=== PATIENT | female | born 1975 | race Caucasian/White ===

== ENCOUNTER → 2016-10-10 | Outpatient (CLI) | payer OTHER ==
[2016-10-10 10:18] LABS: ANION GAP 13 MEQ/L (8-16); BLOOD UREA NITROGEN 9 MG/DL (7-18); CALCIUM LEVEL 8.4 MG/DL (8.5-10.1); CARBON DIOXIDE LEVEL 21 MEQ/L (21-32); CHLORIDE LEVEL 108 MEQ/L (98-107); CREATININE FOR GFR 0.96 MG/DL (0.55-1.02); GLOMERULAR FILTRATION RATE > 60.0 (>58); GLUCOSE, FASTING 174 MG/DL (70-105); POTASSIUM SERUM 4.1 MEQ/L (3.5-5.1); SODIUM LEVEL 142 MEQ/L (136-145)
--- NOTE | 2016-10-11 09:12 | ECGEPIP ---
Stationary ECG Study [facility] Test Date: 2016-10-10 Pat Name: TIMI SWEENEY Department: Room: - Gender: F Grill Associate: SUSHIL : 1975 Requested By: Edwin Menendez @ [facility] Order Number: [id number] Reading MD: Khoa De Anda Measurements Intervals [place] Rate: 102 P: 64 NC: 147 QRS: 57 QRSD: 84 T: 44 QT: 359 QTc: 469 Interpretive Statements SINUS TACHYCARDIA Comparison tracing not on file Electronically Signed On 10-11-2016 9:12:18 EST by Khoa De Anda
== END ==
LOC: M LAB 08:58
PROVIDERS: ATTEND Orthopaedic Surgery
DX: Z01.818 Encounter for other preprocedural examination (principal); R00.0 Tachycardia, unspecified; I10 Essential (primary) hypertension; E11.9 Type 2 diabetes mellitus without complications

== ENCOUNTER → 2016-11-02 | Outpatient (REF) | payer OTHER ==
[2016-11-02 11:46] LABS: ANION GAP 9 MEQ/L (8-16); BLOOD UREA NITROGEN 12 MG/DL (7-18); CALCIUM LEVEL 8.9 MG/DL (8.5-10.1); CARBON DIOXIDE LEVEL 21 MEQ/L (21-32); CHLORIDE LEVEL 112 MEQ/L (98-107); CREATININE FOR GFR 1.03 MG/DL (0.55-1.02); GLOMERULAR FILTRATION RATE > 60.0 (>58); GLUCOSE, FASTING 158 MG/DL (70-105); POTASSIUM SERUM 4.5 MEQ/L (3.5-5.1); SODIUM LEVEL 142 MEQ/L (136-145)
== END ==
LOC: M LABDRAW1 11:18
PROVIDERS: ATTEND Orthopaedic Surgery
DX: Z01.812 Encounter for preprocedural laboratory examination (principal); E11.9 Type 2 diabetes mellitus without complications

== ENCOUNTER 2016-11-16 12:46 | Emergency (ER) | payer OTHER ==
[2016-11-16] MEDS ORDERED: KETOROLAC 30 MG/ML VIAL (J1885) As Ordered ONE (14:13)
--- NOTE | 2016-11-16 15:23 | EDDOCDS ---
Physician Documentation [facility] Name: Timi Keen Age: 41 yrs Sex: Female : 1975 Arrival Date: 11/16/2016 Time: 12:46 Bed PD Private MD: DILLON VILLARREAL Disposition: 11/16/16 15:11 Discharged to Home/Self Care. Impression: Slipping, tripping and stumbling without falling due to stepping from one level to another, Other sprain of right shoulder joint, Low back pain. - Condition is Stable. - Discharge Instructions: Back Pain, Adult, Shoulder Pain. - Prescriptions for Percocet 5- 325 mg Oral Tablet - take 1 tablet by ORAL route every 6 hours As needed MDD: 4 tabs; 12 tablet. - Medication Reconciliation, Local Pharmacy Hours form. - Follow up: DILLON VILLARREAL; When: Call to arrange an appointment; Reason: Wound/Symptom Recheck, Recheck today's complaints, Continuance of care. - Problem is an ongoing problem. - Symptoms have improved. Historical: - Allergies: Aspirin (Hives); Codeine Sulfate (Hives); Flagyl (Hives); Keflex (Hives); PENICILLINS (Hives); Positive latex allergy (Rash); Vicodin (Hives); Zofran (Hives); Tape; - Home Meds: 1. Effexor XR 300 mg Oral once daily 2. Flexeril 10 mg Oral tab 3 times per day 3. levothyroxine 75 mcg Oral tab 1 tab once daily 4. lisinopril 10 mg Oral tab 1.5 tab once daily 5. metformin 1,000 mg Oral tr24 1 tab once daily 6. metoprolol succinate oral 10 mg twice a day 7. Neurontin 800 mg oral tab 1 tab daily 8. hydroxyzine HCl 50 mg Oral tab 1 tab nightly 9. Topamax 200 mg Oral tab 1 tab 2 times per day - PMHx: "psychogenic" seizures; Anxiety; Carpal Tunnel Syndrome; Depression; Diabetes - NIDDM: controlled; Fibromyalgia; Hypertension; Hypothyroidism; Migraine Headaches; neuropathy; Seizure Disorder; - PSHx: R wrist and R elbow surgery; ; Knee surgery- Left; Appendectomy; Colonoscopy; Tonsillectomy; - Social history: Smoking status: Patient states was never smoker of tobacco. No barriers to communication noted, The patient speaks fluent Bengali. - Family history: No immediate family members are acutely ill. - : The pt / caregiver states he / she is not on anticoagulants. Home medication list is obtained from the patient. - Exposure Risk Screening:: None identified. COOK 3 PASTRY: 11/16 12:55 LMP 11/03/2016 ms18 Vital Signs: 12:47 BP 97 / 53; Pulse 83; Resp 18 S; Temp 98.4(O); Pulse Ox 98% on R/A; Weight 77.11 kg / gr2 170 lbs (R); Height 5 ft. 2 in. (157.48 cm) (R); Pain 8/10; 15:21 BP 112 / 64; Pulse 68; Resp 17; Temp 97.1; Pulse Ox 96% ; mb9 12:47 Body Mass Index 31.09 (77.11 kg, 157.48 cm) gr2 MDM: 13:55 ketorolac 60 mg IM once ordered. cc10 13:55 Shoulder, Complete Ordered. EDMS 13:57 Spine. Lumbosacral, Complete Ordered. EDMS 14:11 Financial registration complete. lg Administered Medications: 14:18 Drug: ketorolac 60 mg [ketorolac 30 mg/mL (1 mL) injection solution (2 mL)] Route: IM; ms18 Site: right gluteus; Signatures: Dispatcher [employer] EDMS Dwayne Green, Reg Reg lg Alan Taylor, ANNETTA LITTLEJOHN cc10 Jessi Rondon RN RN ms18 Viral John RN RN mb9 MTDD
--- NOTE | 2016-11-16 15:23 | EDDOCDS ---
Nurse's Notes [facility] Name: Timi Keen Age: 41 yrs Sex: Female : 1975 Arrival Date: 11/16/2016 Time: 12:46 Bed PD Private MD: DILLON VILLARREAL Diagnosis: Slipping, tripping and stumbling without falling due to stepping from one level to another;Other sprain of right shoulder joint;Low back pain Presentation: 11/16 12:51 Presenting complaint: Patient states: that she fell in the shower a week ago and now ms18 her R shoulder, R side of her neck, and lower back are hurting. Adult Sepsis Screening: The patient does not have new or worsening altered mentation. Patient's respiratory rate is less than 22. Systolic blood pressure is greater than 100. Patient has a qSOFA score of 0- Negative Sepsis Screen. Suicide/Homicide risk assessment- the patient denies having any suicidal and/or homicidal ideations and does not present with any other emotional, behavioral or mental health complaints. 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 Transition of care: patient was not received from another setting of care. 12:51 Acuity: RAFAT Level 4 ms18 12:51 Method Of Arrival: Walkin/Carried/Asstd ms18 Triage Assessment: 12:55 General: Appears in no apparent distress, obese, uncomfortable, Behavior is appropriate ms18 for age, cooperative. Pain: Location: low back area, anterior aspect of right shoulder and posterior aspect of right shoulder Pain currently is 10 out of 10 on a pain scale. HIV screening NA for this visit Offered previously. Neurological: Level of Consciousness is awake, alert, obeys commands, Oriented to person, place, time, Moves all extremities. Gait is steady, Speech is normal, Facial symmetry appears normal. Respiratory: No deficits noted. Derm: Skin is pink, warm & dry. normal. Musculoskeletal: Reports pain in low back area, anterior aspect of right shoulder, posterior aspect of right shoulder and right sternocleidomastoid. 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 Effexor XR 300 mg Oral once daily 2. Flexeril 10 mg Oral tab 3 times per day 3. levothyroxine 75 mcg Oral tab 1 tab once daily 4. lisinopril 10 mg Oral tab 1.5 tab once daily 5. metformin 1,000 mg Oral tr24 1 tab once daily 6. metoprolol succinate oral 10 mg twice a day 7. Neurontin 800 mg oral tab 1 tab daily 8. hydroxyzine HCl 50 mg Oral tab 1 tab nightly 9. Topamax 200 mg Oral tab 1 tab 2 times per day - PMHx: "psychogenic" seizures; Anxiety; Carpal Tunnel Syndrome; Depression; Diabetes - NIDDM: controlled; Fibromyalgia; Hypertension; Hypothyroidism; Migraine Headaches; neuropathy; Seizure Disorder; - PSHx: R wrist and R elbow surgery; ; Knee surgery- Left; Appendectomy; Colonoscopy; Tonsillectomy; - Social history: Smoking status: Patient states was never smoker of tobacco. No barriers to communication noted, The patient speaks fluent Latvian. - Family history: No immediate family members are acutely ill. - : The pt / caregiver states he / she is not on anticoagulants. Home medication list is obtained from the patient. - Exposure Risk Screening:: None identified. Screenin:21 Screening information is obtained from the patient. Fall risk: No risks identified. mb9 Assistance ADL's: requires no assistance with activities of daily living. Abuse/DV Screen: The patient / caregiver reports he/she is: not in a situation that causes fear, pain or injury. Nutritional screening: No deficits noted. Advance Directives: There is no active DNR order. home support is adequate. Assessment: 15:21 General: Appears in no apparent distress, Behavior is appropriate for age, cooperative. mb9 Pain: Location: anterior aspect of right shoulder Pain currently is 5 out of 10 on a pain scale. Respiratory: Airway is patent Respiratory effort is even, unlabored. Musculoskeletal: Range of motion limited in right shoulder. Vital Signs: 12:47 BP 97 / 53; Pulse 83; Resp 18 S; Temp 98.4(O); Pulse Ox 98% on R/A; Weight 77.11 kg gr2 (R); Height 5 ft. 2 in. (157.48 cm) (R); Pain 8/10; 15:21 BP 112 / 64; Pulse 68; Resp 17; Temp 97.1; Pulse Ox 96% ; mb9 12:47 Body Mass Index 31.09 (77.11 kg, 157.48 cm) gr2 Vitals: 12:47 Log In Time: November 16, 2016 at 12:47. gr2 ED Course: 12:47 Patient visited by Pete Erickson. gr2 12:47 DILLON VILLARREAL is Private Physician. gr2 12:47 Patient moved to Waiting gr2 12:49 Patient visited by Pete Erickson. gr2 12:49 Patient moved to Pre RCE gr2 12:52 Triage Initiated ms18 13:41 Patient moved to Triage 3 mb9 13:48 Alan Taylor PA-C is PHCP. cc10 13:48 Avelino Goodman MD is Attending Physician. cc10 13:48 Patient visited by Alan Taylor PA-C. cc10 13:48 Patient visited by Alan Taylor PA-C. cc10 14:16 Patient visited by Jessi Rondon RN. ms18 14:18 Patient moved to TR2 ms18 15:07 Patient moved to PD2 / 27 mlb1 15:11 DILLON VILLARREAL is Referral Physician. cc10 15:21 The patient / caregiver is instructed regarding the plan of care and ED course. mb9 15:21 No IV's were initiated during this patient's visit. No procedures done that require mb9 assistance. Administered Medications: 14:18 Drug: ketorolac 60 mg [ketorolac 30 mg/mL (1 mL) injection solution (2 mL)] Route: IM; ms18 Site: right gluteus; Order Results: There are currently no results for this order. Outcome: 15:11 Discharge ordered by Provider. cc10 15:21 Discharge Assessment: Patient awake, alert and oriented x 3. No cognitive and/or mb9 functional deficits noted. Patient verbalized understanding of disposition instructions. patient administered narcotics - no. The following High Risk Discharge criteria are identified: None. Discharged to home ambulatory. Condition: good Condition: stable Condition: improved. Discharge instructions given to patient, Instructed on discharge instructions, follow up and referral plans. medication usage, no driving heavy equipment, Demonstrated understanding of instructions, medications, Pt was receptive of discharge instructions/ teaching. Prescriptions given X 1. No special radiology studies were completed. Property :Personal belongings accompany Pt. 15:23 Patient left the ED. mb9 Signatures: Viral Miller RN RN mlb1 Pete Erickson gr2 Alan Taylor PA-C PA-C cc10 Jessi Rondon RN RN ms18 Viral John RN RN mb9 MTDD
--- NOTE | 2016-11-16 15:41 | REP ---
LUMBAR SPINE, FIVE VIEWS: HISTORY: Trauma. There is no acute fracture or subluxation. The L3-4 and L4-5 intervertebral discs are decreased in height consistent with disc degeneration. Osteophytes are present on L1 through L4. The facet joints are normal in appearance. Calcifications are present overlying the left kidney. This likely represents nephrocalcinosis. There is minimal scoliosis convex to the left. IMPRESSION: 1. Degenerative change as described above. 2. Left nephrocalcinosis. Signed by Carlos Hicks MD 11/16/2016 03:48 P
--- NOTE | 2016-11-16 15:42 | REP ---
RIGHT SHOULDER, THREE VIEWS: HISTORY: Trauma. There is no acute fracture or dislocation. The joint spaces are normal in appearance. IMPRESSION: There is no acute fracture or dislocation. Signed by Carlos Hicks MD 11/16/2016 03:48 P
--- NOTE | 2016-11-18 16:24 | EDDOCDS ---
Physician Documentation [facility] Name: Timi Keen Age: 41 yrs Sex: Female : 1975 Arrival Date: 11/16/2016 Time: 12:46 Bed PD Private MD: DILLON VILLARREAL Disposition: 11/16/16 15:11 Discharged to Home/Self Care. Impression: Slipping, tripping and stumbling without falling due to stepping from one level to another, Other sprain of right shoulder joint, Low back pain. - Condition is Stable. - Discharge Instructions: Back Pain, Adult, Shoulder Pain. - Prescriptions for Percocet 5- 325 mg Oral Tablet - take 1 tablet by ORAL route every 6 hours As needed MDD: 4 tabs; 12 tablet. - Medication Reconciliation, Local Pharmacy Hours form. - Follow up: DILLON VILLARREAL; When: Call to arrange an appointment; Reason: Wound/Symptom Recheck, Recheck today's complaints, Continuance of care. - Problem is an ongoing problem. - Symptoms have improved. Historical: - Allergies: Aspirin (Hives); Codeine Sulfate (Hives); Flagyl (Hives); Keflex (Hives); PENICILLINS (Hives); Positive latex allergy (Rash); Vicodin (Hives); Zofran (Hives); Tape; - Home Meds: 1. Effexor XR 300 mg Oral once daily 2. Flexeril 10 mg Oral tab 3 times per day 3. levothyroxine 75 mcg Oral tab 1 tab once daily 4. lisinopril 10 mg Oral tab 1.5 tab once daily 5. metformin 1,000 mg Oral tr24 1 tab once daily 6. metoprolol succinate oral 10 mg twice a day 7. Neurontin 800 mg oral tab 1 tab daily 8. hydroxyzine HCl 50 mg Oral tab 1 tab nightly 9. Topamax 200 mg Oral tab 1 tab 2 times per day - PMHx: "psychogenic" seizures; Anxiety; Carpal Tunnel Syndrome; Depression; Diabetes - NIDDM: controlled; Fibromyalgia; Hypertension; Hypothyroidism; Migraine Headaches; neuropathy; Seizure Disorder; - PSHx: R wrist and R elbow surgery; ; Knee surgery- Left; Appendectomy; Colonoscopy; Tonsillectomy; - Social history: Smoking status: Patient states was never smoker of tobacco. No barriers to communication noted, The patient speaks fluent Azeri. - Family history: No immediate family members are acutely ill. - : The pt / caregiver states he / she is not on anticoagulants. Home medication list is obtained from the patient. - Exposure Risk Screening:: None identified. 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 2 in. (157.48 cm) (R); Pain 8/10; 15:21 BP 112 / 64; Pulse 68; Resp 17; Temp 97.1; Pulse Ox 96% ; mb9 12:47 Body Mass Index 31.09 (77.11 kg, 157.48 cm) gr2 MDM: 13:55 ketorolac 60 mg IM once ordered. cc10 13:55 Shoulder, Complete Ordered. EDMS 13:57 Spine. Lumbosacral, Complete Ordered. EDMS 14:11 Financial registration complete. lg 15:48 [facility] Payment Agreement was scanned into [employer] and attached to record. lg 11/17 13:43 T-Sheet-- Draft Copy was scanned into [employer] and attached to record. gb Administered Medications: 11/16 14:18 Drug: ketorolac 60 mg [ketorolac 30 mg/mL (1 mL) injection solution (2 mL)] Route: IM; ms18 Site: right gluteus; Signatures: Dispatcher [employer] EDMS Neda Rondon, Reg Reg gb Dwayne Green, Reg Reg lg Alan Taylor PA-C PA-C cc10 Jessi Rondon RN RN ms18 Viral John RN RN mb9 The chart was reviewed and I authenticate all verbal orders and agree with the evaluation and treatment provided.Attachments: 15:48 [facility] Payment Agreement 11/17 13:43 T-Sheet-- Draft Copy gb Chart Complete MTDD
--- NOTE | 2016-11-18 16:24 | EDDOCDS ---
Nurse's Notes [facility] Name: Timi Keen Age: 41 yrs Sex: Female : 1975 Arrival Date: 11/16/2016 Time: 12:46 Bed PD Private MD: DILLON VILLARREAL Diagnosis: Slipping, tripping and stumbling without falling due to stepping from one level to another;Other sprain of right shoulder joint;Low back pain Presentation: 11/16 12:51 Presenting complaint: Patient states: that she fell in the shower a week ago and now ms18 her R shoulder, R side of her neck, and lower back are hurting. Adult Sepsis Screening: The patient does not have new or worsening altered mentation. Patient's respiratory rate is less than 22. Systolic blood pressure is greater than 100. Patient has a qSOFA score of 0- Negative Sepsis Screen. Suicide/Homicide risk assessment- the patient denies having any suicidal and/or homicidal ideations and does not present with any other emotional, behavioral or mental health complaints. Status: Patient is not a ancillary services manager or dependent. Transition of care: patient was not received from another setting of care. 12:51 Acuity: RAFAT Level 4 ms18 12:51 Method Of Arrival: Walkin/Carried/Asstd ms18 Triage Assessment: 12:55 General: Appears in no apparent distress, obese, uncomfortable, Behavior is appropriate ms18 for age, cooperative. Pain: Location: low back area, anterior aspect of right shoulder and posterior aspect of right shoulder Pain currently is 10 out of 10 on a pain scale. HIV screening NA for this visit Offered previously. Neurological: Level of Consciousness is awake, alert, obeys commands, Oriented to person, place, time, Moves all extremities. Gait is steady, Speech is normal, Facial symmetry appears normal. Respiratory: No deficits noted. Derm: Skin is pink, warm & dry. normal. Musculoskeletal: Reports pain in low back area, anterior aspect of right shoulder, posterior aspect of right shoulder and right sternocleidomastoid. 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 Effexor XR 300 mg Oral once daily 2. Flexeril 10 mg Oral tab 3 times per day 3. levothyroxine 75 mcg Oral tab 1 tab once daily 4. lisinopril 10 mg Oral tab 1.5 tab once daily 5. metformin 1,000 mg Oral tr24 1 tab once daily 6. metoprolol succinate oral 10 mg twice a day 7. Neurontin 800 mg oral tab 1 tab daily 8. hydroxyzine HCl 50 mg Oral tab 1 tab nightly 9. Topamax 200 mg Oral tab 1 tab 2 times per day - PMHx: "psychogenic" seizures; Anxiety; Carpal Tunnel Syndrome; Depression; Diabetes - NIDDM: controlled; Fibromyalgia; Hypertension; Hypothyroidism; Migraine Headaches; neuropathy; Seizure Disorder; - PSHx: R wrist and R elbow surgery; ; Knee surgery- Left; Appendectomy; Colonoscopy; Tonsillectomy; - Social history: Smoking status: Patient states was never smoker of tobacco. No barriers to communication noted, The patient speaks fluent Syriac. - Family history: No immediate family members are acutely ill. - : The pt / caregiver states he / she is not on anticoagulants. Home medication list is obtained from the patient. - Exposure Risk Screening:: None identified. Screenin:21 Screening information is obtained from the patient. Fall risk: No risks identified. mb9 Assistance ADL's: requires no assistance with activities of daily living. Abuse/DV Screen: The patient / caregiver reports he/she is: not in a situation that causes fear, pain or injury. Nutritional screening: No deficits noted. Advance Directives: There is no active DNR order. home support is adequate. Assessment: 15:21 General: Appears in no apparent distress, Behavior is appropriate for age, cooperative. mb9 Pain: Location: anterior aspect of right shoulder Pain currently is 5 out of 10 on a pain scale. Respiratory: Airway is patent Respiratory effort is even, unlabored. Musculoskeletal: Range of motion limited in right shoulder. Vital Signs: 12:47 BP 97 / 53; Pulse 83; Resp 18 S; Temp 98.4(O); Pulse Ox 98% on R/A; Weight 77.11 kg gr2 (R); Height 5 ft. 2 in. (157.48 cm) (R); Pain 8/10; 15:21 BP 112 / 64; Pulse 68; Resp 17; Temp 97.1; Pulse Ox 96% ; mb9 12:47 Body Mass Index 31.09 (77.11 kg, 157.48 cm) gr2 Vitals: 12:47 Log In Time: November 16, 2016 at 12:47. gr2 ED Course: 12:47 Patient visited by Pete Erickson. gr2 12:47 DILLON VILLARREAL is Private Physician. gr2 12:47 Patient moved to Waiting gr2 12:49 Patient visited by Pete Erickson. gr2 12:49 Patient moved to Pre RCE gr2 12:52 Triage Initiated ms18 13:41 Patient moved to Triage 3 mb9 13:48 Alan Taylor PA-C is PHCP. cc10 13:48 Avelino Goodman MD is Attending Physician. cc10 13:48 Patient visited by Alan Taylor PA-C. cc10 13:48 Patient visited by Alan Taylor PA-C. cc10 14:16 Patient visited by Jessi Rondon RN. ms18 14:18 Patient moved to TR2 ms18 15:07 Patient moved to PD2 / 27 mlb1 15:11 DILLON VILLARREAL is Referral Physician. cc10 15:21 The patient / caregiver is instructed regarding the plan of care and ED course. mb9 15:21 No IV's were initiated during this patient's visit. No procedures done that require mb9 assistance. 15:48 [facility] Payment Agreement was scanned into [employer] and attached to record. lg 15:49 Spine. Lumbosacral, Complete Returned. EDMS 15:49 Shoulder, Complete Returned. EDMS 11/17 13:43 T-Sheet-- Draft Copy was scanned into [employer] and attached to record. gb Administered Medications: 11/16 14:18 Drug: ketorolac 60 mg [ketorolac 30 mg/mL (1 mL) injection solution (2 mL)] Route: IM; ms18 Site: right gluteus; Order Results: Radiology Order: Shoulder, Complete Test: Shoulder, Complete REASON FOR EXAMINATION: Trauma; RIGHT SHOULDER, THREE VIEWS:; ; HISTORY: Trauma.; ; There is no acute fracture or dislocation. The joint spaces are normal in; appearance.; ; IMPRESSION:; ; There is no acute fracture or dislocation.; ; ; Signed by; Carlos Hicks MD 11/16/2016 03:48 P; Radiology Order: Spine. Lumbosacral, Complete Test: Spine. Lumbosacral, Complete REASON FOR EXAMINATION: Trauma; LUMBAR SPINE, FIVE VIEWS:; ; HISTORY: Trauma.; ; There is no acute fracture or subluxation. The L3-4 and L4-5 intervertebral discs; are decreased in height consistent with disc degeneration. Osteophytes are; present on L1 through L4. The facet joints are normal in appearance.; Calcifications are present overlying the left kidney. This likely represents; nephrocalcinosis. There is minimal scoliosis convex to the left.; ; IMPRESSION:; ; 1. Degenerative change as described above.; ; 2. Left nephrocalcinosis.; ; ; Signed by; Carlos Hicks MD 11/16/2016 03:48 P; Outcome: 15:11 Discharge ordered by Provider. cc10 15:21 Discharge Assessment: Patient awake, alert and oriented x 3. No cognitive and/or mb9 functional deficits noted. Patient verbalized understanding of disposition instructions. patient administered narcotics - no. The following High Risk Discharge criteria are identified: None. Discharged to home ambulatory. Condition: good Condition: stable Condition: improved. Discharge instructions given to patient, Instructed on discharge instructions, follow up and referral plans. medication usage, no driving heavy equipment, Demonstrated understanding of instructions, medications, Pt was receptive of discharge instructions/ teaching. Prescriptions given X 1. No special radiology studies were completed. Property :Personal belongings accompany Pt. 15:23 Patient left the ED. mb9 Signatures: Dispatcher [employer] EDMS Neda Rondon, Reg Reg gb Dwayne Green, Reg Reg lg Viral Miller RN RN mlb1 Pete Erickson gr2 Alan Taylor PADilciaC PADilciaC cc10 Jessi Rondon RN RN ms18 Viral John,RN RN mb9 Chart Complete MTDD
--- NOTE | 2016-11-18 16:24 | EDDOCDS ---
Physician Documentation [facility] Name: Timi Keen Age: 41 yrs Sex: Female : 1975 Arrival Date: 11/16/2016 Time: 12:46 Bed PD Private MD: DILLON VILLARREAL Disposition: 11/16/16 15:11 Discharged to Home/Self Care. Impression: Slipping, tripping and stumbling without falling due to stepping from one level to another, Other sprain of right shoulder joint, Low back pain. - Condition is Stable. - Discharge Instructions: Back Pain, Adult, Shoulder Pain. - Prescriptions for Percocet 5- 325 mg Oral Tablet - take 1 tablet by ORAL route every 6 hours As needed MDD: 4 tabs; 12 tablet. - Medication Reconciliation, Local Pharmacy Hours form. - Follow up: DILLON VILLARREAL; When: Call to arrange an appointment; Reason: Wound/Symptom Recheck, Recheck today's complaints, Continuance of care. - Problem is an ongoing problem. - Symptoms have improved. Historical: - Allergies: Aspirin (Hives); Codeine Sulfate (Hives); Flagyl (Hives); Keflex (Hives); PENICILLINS (Hives); Positive latex allergy (Rash); Vicodin (Hives); Zofran (Hives); Tape; - Home Meds: 1. Effexor XR 300 mg Oral once daily 2. Flexeril 10 mg Oral tab 3 times per day 3. levothyroxine 75 mcg Oral tab 1 tab once daily 4. lisinopril 10 mg Oral tab 1.5 tab once daily 5. metformin 1,000 mg Oral tr24 1 tab once daily 6. metoprolol succinate oral 10 mg twice a day 7. Neurontin 800 mg oral tab 1 tab daily 8. hydroxyzine HCl 50 mg Oral tab 1 tab nightly 9. Topamax 200 mg Oral tab 1 tab 2 times per day - PMHx: "psychogenic" seizures; Anxiety; Carpal Tunnel Syndrome; Depression; Diabetes - NIDDM: controlled; Fibromyalgia; Hypertension; Hypothyroidism; Migraine Headaches; neuropathy; Seizure Disorder; - PSHx: R wrist and R elbow surgery; ; Knee surgery- Left; Appendectomy; Colonoscopy; Tonsillectomy; - Social history: Smoking status: Patient states was never smoker of tobacco. No barriers to communication noted, The patient speaks fluent Azeri. - Family history: No immediate family members are acutely ill. - : The pt / caregiver states he / she is not on anticoagulants. Home medication list is obtained from the patient. - Exposure Risk Screening:: None identified. 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 2 in. (157.48 cm) (R); Pain 8/10; 15:21 BP 112 / 64; Pulse 68; Resp 17; Temp 97.1; Pulse Ox 96% ; mb9 12:47 Body Mass Index 31.09 (77.11 kg, 157.48 cm) gr2 MDM: 13:55 ketorolac 60 mg IM once ordered. cc10 13:55 Shoulder, Complete Ordered. EDMS 13:57 Spine. Lumbosacral, Complete Ordered. EDMS 14:11 Financial registration complete. lg 15:48 [facility] Payment Agreement was scanned into Bottle and attached to record. lg 11/17 13:43 T-Sheet-- Draft Copy was scanned into Bottle and attached to record. gb Administered Medications: 11/16 14:18 Drug: ketorolac 60 mg [ketorolac 30 mg/mL (1 mL) injection solution (2 mL)] Route: IM; ms18 Site: right gluteus; Signatures: Dispatcher [employer] EDMS Neda Rondon, Reg Reg gb Dwayne Green, Reg Reg lg Alan Taylor PA-C PA-C cc10 Jessi Rondon RN RN ms18 Viral John RN RN mb9 The chart was reviewed and I authenticate all verbal orders and agree with the evaluation and treatment provided.Attachments: 15:48 [facility] Payment Agreement 11/17 13:43 T-Sheet-- Draft Copy gb Chart Complete MTDD
== END 2016-11-16 15:23 | disposition home or self-care (01) ==
LOC: M ED 12:46
DX: S40.011A Contusion of right shoulder, initial encounter (principal); M54.5 Low back pain; W18.2XXA Fall in (into) shower or empty bathtub, initial encounter; Y92.019 Unspecified place in single-family (private) house as the place of occurrence of the external cause; Y93.E1 Activity, personal bathing and showering; Y99.9 Unspecified external cause status; E11.9 Type 2 diabetes mellitus without complications; F41.9 Anxiety disorder, unspecified; F32.9 Major depressive disorder, single episode, unspecified; F44.5 Conversion disorder with seizures or convulsions; M79.7 Fibromyalgia; I10 Essential (primary) hypertension; E03.9 Hypothyroidism, unspecified; G43.909 Migraine, unspecified, not intractable, without status migrainosus; G62.9 Polyneuropathy, unspecified; Z79.84 Long term (current) use of oral hypoglycemic drugs; Z79.899 Other long term (current) drug therapy; Z88.6 Allergy status to analgesic agent; Z88.5 Allergy status to narcotic agent; Z88.0 Allergy status to penicillin; Z91.040 Latex allergy status; Z88.8 Allergy status to other drugs, medicaments and biological substances
CPT/HCPCS: 72110; 73030; 96372; 99283; J1885

== ENCOUNTER → 2017-01-26 | Outpatient (CLI) | payer OTHER ==
[~2017-01-26] MED LIST: CONRAY-43 43% 50ML VIAL (Q9960) As Ordered ONE; EFFE75CA75 PO; GABA800T PO; HYDR-4274 PO; LEVO75TA4 PO; LISI10TA4 PO; METF500T PO; METO25TA74 PO; PHEN-239 PO; TIZA4CAP3 PO; TOPA200T6 PO
--- NOTE | 2017-01-26 10:04 | REP ---
MR ARTHROGRAM RIGHT SHOULDER: TECHNIQUE: Axial T2 fat sat, coronal oblique T1, T2 fat sat, post arthrogram axial T1 fat sat, proton density, coronal oblique T1 fat sat, T2 sat, sagittal oblique T2 fat sat, ABER T1 fat sat. Supraspinatus tendon demonstrates focal increased signal on T2-weighted images in the undersurface of the distal anterior insertion site consistent with a partial undersurface tear. Another partial undersurface tear is seen approximately 1.5 cm medially to the distal end of the tendon. Other rotator cuff tendons appear intact. There are mild hypertrophic degenerative changes of the acromioclavicular joint with subchondral marrow edema on both sides of the joint. Acromion is curved in shape. Biceps tendon is within the bicipital groove without significant tenosynovitis. There is no Hill-Sach's deformity. Deltoid muscle demonstrates no abnormal signal. Biceps labral complex is intact. There is a small Bankart lesion at the anterior inferior labrum and glenoid. A small piece of bone about 4 mm in diameter is from the adjacent bony glenoid along with the inferior labrum, at the anterior inferior aspect of the glenoid. There is also a tear of the posterior aspect of the inferior labrum. No other abnormal marrow signal is seen. There is no joint effusion or paralabral cyst. IMPRESSION: Two focal partial thickness undersurface tears distal supraspinatus tendon. Mild hypertrophic degenerative changes acromioclavicular joint with subchondral marrow edema. Bankart lesion anterior inferior glenoid and labrum. There is also a tear of the posterior aspect of the inferior labrum. Signed by Abhishek Wilhelm MD 01/26/2017 04:49 P
--- NOTE | 2017-01-27 06:12 | REP ---
RIGHT SHOULDER ARTHROGRAM: The procedure was performed under the direct supervision of Dr. Wilhelm. The benefits and risks including but not limited to pain, infection, bleeding and anaphylaxis were explained to the patient and informed consent was obtained. The right glenohumeral joint space was localized using fluoroscopic guidance. The skin was prepped and draped in a sterile fashion. 1% lidocaine was used as a local anesthetic. Using fluoroscopic guidance, a 22-gauge spinal needle was inserted and advanced into the joint. 0.5 mL of Conray 43 was injected to verify placement. 11 mL of a solution containing 20 mL of sterile saline and 0.15 mL of ProHance was injected. The needle was removed and the patient was taken to MRI for postprocedural imaging. The patient tolerated the procedure well and there were no immediate complications. 1 second of fluoroscopy time was utilized for this procedure. Reviewed by GUANAKITO Cancino 01/27/2017 05:34 PEdited and Signed by Abhishek Wilhelm MD 01/30/2017 05:34 P
== END ==
LOC: M RADPRO 06:57
PROVIDERS: ATTEND Family Medicine
DX: M75.41 Impingement syndrome of right shoulder (principal); M24.811 Other specific joint derangements of right shoulder, not elsewhere classified; M24.111 Other articular cartilage disorders, right shoulder; M19.011 Primary osteoarthritis, right shoulder; M25.411 Effusion, right shoulder; Z88.8 Allergy status to other drugs, medicaments and biological substances; Z88.0 Allergy status to penicillin; Z79.899 Other long term (current) drug therapy
CPT/HCPCS: 23350; 73223; 77002; A9576; Q9960

== ENCOUNTER 2017-02-23 14:00 | Outpatient (RCR) | payer MEDICAID ==
[~2017-02-23 14:00] MED LIST changes: -CONRAY-43 43% 50ML VIAL (Q9960) As Ordered ONE
== END 2017-03-01 ==
LOC: M OUTALCOH 14:00
PROVIDERS: ATTEND Psychiatry & Neurology Psychiatry
DX: F10.20 Alcohol dependence, uncomplicated (principal)

== ENCOUNTER → 2017-03-02 | Outpatient (REF) | payer OTHER ==
[2017-03-02 13:30] LABS: ANION GAP 9 MEQ/L (8-16); BLOOD UREA NITROGEN 12 MG/DL (7-18); CALCIUM LEVEL 9.1 MG/DL (8.5-10.1); CARBON DIOXIDE LEVEL 25 MEQ/L (21-32); CHLORIDE LEVEL 110 MEQ/L (98-107); CREATININE FOR GFR 0.95 MG/DL (0.55-1.02); FREE T4 0.63 NG/DL (0.76-1.46); GLOMERULAR FILTRATION RATE > 60.0 (>58); GLUCOSE, FASTING 123 MG/DL (70-105); POTASSIUM SERUM 3.8 MEQ/L (3.5-5.1); SODIUM LEVEL 144 MEQ/L (136-145)
== END ==
LOC: M SFHCLERA 09:29
PROVIDERS: ATTEND Family Medicine
DX: E03.9 Hypothyroidism, unspecified (principal); E11.9 Type 2 diabetes mellitus without complications; I10 Essential (primary) hypertension

== ENCOUNTER 2017-03-15 03:03 | Emergency (ER) | payer OTHER ==
[~2017-03-15] VITALS: Ht 157.5 cm; Wt 73.0 kg
[2017-03-15] MEDS ORDERED: LYRI75CA PO (03:13)
[2017-03-15] MEDS ORDERED: CLIN1CAP5 PO (03:42)
[2017-03-15] MEDS ORDERED: CLINDAMYCIN 150 MG CAP PO ONE (03:45)
[2017-03-15] MEDS ORDERED: OXYCODONE/APAP 5MG/325MG(BULK FOR ED) 1 TABLET PO ONE (03:45)
[2017-03-15 03:51] VITALS: BP 138/82
[2017-03-28] MEDS ORDERED: METF500T PO (17:03)
[2017-03-28] MEDS ORDERED: BENA25TA9 PO ×2 (18:33→18:34)
== END 2017-03-15 03:52 | disposition home or self-care (01) ==
LOC: M ED 03:33
DX: S02.5XXA Fracture of tooth (traumatic), initial encounter for closed fracture (principal); X58.XXXA Exposure to other specified factors, initial encounter; Y92.9 Unspecified place or not applicable; Y93.9 Activity, unspecified; Y99.9 Unspecified external cause status; E11.9 Type 2 diabetes mellitus without complications; M79.7 Fibromyalgia; Z79.84 Long term (current) use of oral hypoglycemic drugs; Z79.899 Other long term (current) drug therapy; Z88.6 Allergy status to analgesic agent; Z88.0 Allergy status to penicillin; Z88.1 Allergy status to other antibiotic agents; Z88.8 Allergy status to other drugs, medicaments and biological substances

== ENCOUNTER → 2017-03-16 | Outpatient (CLI) | payer OTHER ==
[~2017-03-16] MED LIST changes: +CLIN1CAP5 PO; +LYRI75CA PO
--- NOTE | 2017-03-17 06:53 | REP ---
Clinical: Hypothyroidism. Technique: Real time andrade scale and color evaluation using linear high frequency transducer. Findings: The thyroid gland is mildly heterogeneous but normal in size and contour. Right lobe measures 3.5 x 1.1 x 1.0 cm with small cysts measuring up to 5 mm maximal diameter as well as two mid pole solid nodules measuring 4 x 3 x 4 mm, and 5 x 3 x 4 mm. Left lobe measures 3.9 x 1.2 x 0.9 cm and includes 5 mm cyst and 3 x 2 x 2 mm mid pole solid nodule. Isthmus measures 2.2 mm in width with a right hypoechoic solid nodule measuring 7 x 7 x 4 mm. Impression: Scattered nonspecific small cysts and few solid nodules as described above. Signed by Karel Anne MD 03/17/2017 06:44 A
== END ==
LOC: M RAD 11:13
PROVIDERS: ATTEND Family Medicine
DX: E04.1 Nontoxic single thyroid nodule (principal)

== ENCOUNTER 2017-03-28 16:49 | Emergency (ER) | payer MEDICAID, OTHER ==
[~2017-03-28 16:49] MED LIST changes: +CLIN150C14 PO; -CLIN1CAP5 PO; -HYDR-4274 PO; +HYDR50TA70 PO; -METF500T PO; +METF500T13 PO; +METO1TAB32 PO; -METO25TA74 PO; -TOPA200T6 PO; +TOPA200T7 PO
[2017-03-28] MEDS ORDERED: diphenhydrAMINE INJ 50MG/ML VIAL (J1200) IV STA (16:58)
[2017-03-28] MEDS ORDERED: dexameTHASONE 20 MG/5 ML VIAL (J1100) IV ONE (17:00)
[2017-03-28] MEDS ORDERED: FAMOTIDINE INJ 20MG/2ML VIAL (S0028) IVP ONE (17:00)
[2017-03-28] MEDS ORDERED: METF500T13 PO (17:03)
[2017-03-28] MEDS ORDERED: LEVO88TA3 PO (17:03)
[2017-03-28] MEDS ORDERED: BENA25TA10 PO ×2 (18:33→18:34)
[2017-03-28] MEDS ORDERED: NORCO, ANEXSIA 5/325MG TABLET (HYDROcodone/ACETAMINOPHEN) PO ONE (18:45)
[2017-03-28 19:03] VITALS: BP 169/103
== END 2017-03-28 19:23 | disposition home or self-care (01) ==
LOC: M ED 16:49
DX: R21 Rash and other nonspecific skin eruption (principal); R06.02 Shortness of breath; E11.9 Type 2 diabetes mellitus without complications; R56.9 Unspecified convulsions; M79.7 Fibromyalgia; Z79.84 Long term (current) use of oral hypoglycemic drugs; Z79.899 Other long term (current) drug therapy; Z88.4 Allergy status to anesthetic agent; Z88.1 Allergy status to other antibiotic agents; Z88.5 Allergy status to narcotic agent; Z88.0 Allergy status to penicillin

== ENCOUNTER → 2017-03-31 | Outpatient (RCR) | payer MEDICAID ==
[~2017-03-31] MED LIST changes: +ACET1TAB17 PO; +ATIV1TAB10; +BENA25TA10 PO; +EFFE150C PO; +EFFE37.527 PO; +LAMI1TAB7; +LEVO88TA3 PO; +PERC5TAB12 PO; +PRAZ1CAP; +REGL10TA6 PO; +WELLTAB38
== END ==
LOC: M OUTALCOH 03-02 15:08
PROVIDERS: ATTEND Psychiatry & Neurology Psychiatry
DX: F10.20 Alcohol dependence, uncomplicated (principal)

== ENCOUNTER → 2017-04-11 | Outpatient (REF) | payer OTHER ==
[2017-04-11 15:31] LABS: FREE T4 0.95 NG/DL (0.76-1.46)
== END ==
LOC: M SFHCLERA 12:21
PROVIDERS: ATTEND Family Medicine
DX: E03.9 Hypothyroidism, unspecified (principal)

== ENCOUNTER 2017-04-12 13:20 | Emergency (ER) | payer OTHER ==
[~2017-04-12] VITALS: Ht 157.5 cm; Wt 80.5 kg
[2017-04-12 13:20] VITALS: BP 141/82
[~2017-04-12 13:20] MED LIST changes: -ACET1TAB17 PO; -ATIV1TAB10; -EFFE150C PO; -EFFE37.527 PO; -LAMI1TAB7; -PERC5TAB12 PO; -PRAZ1CAP; -REGL10TA6 PO; -WELLTAB38
== END 2017-04-12 14:25 | disposition left against medical advice (07) ==
LOC: M ED 13:20
DX: S49.91XA Unspecified injury of right shoulder and upper arm, initial encounter (principal); X58.XXXA Exposure to other specified factors, initial encounter; Y92.89 Other specified places as the place of occurrence of the external cause; Y93.89 Activity, other specified; Y99.8 Other external cause status; Z53.29 Procedure and treatment not carried out because of patient's decision for other reasons

== ENCOUNTER 2017-04-13 14:00 | Outpatient (RCR) | payer MEDICAID ==
[2017-04-23] MEDS ORDERED: EFFE37.527 PO (00:31)
[2017-04-23] MEDS ORDERED: EFFE150C PO (00:31)
[2017-04-23] MEDS ORDERED: PERC5TAB12 PO (01:03)
[2017-04-23] MEDS ORDERED: ACET1TAB17 PO (22:31)
[2017-04-25] MEDS ORDERED: EFFE150C PO (15:17)
[2017-04-25] MEDS ORDERED: REGL10TA6 PO (17:45)
== END 2017-05-01 ==
LOC: M OUTALCOH 14:00
PROVIDERS: ATTEND Psychiatry & Neurology Psychiatry
DX: F10.20 Alcohol dependence, uncomplicated (principal)

== ENCOUNTER 2017-04-23 00:11 | Emergency (ER) | payer MEDICAID, OTHER ==
[~2017-04-23] VITALS: Ht 157.5 cm; Wt 76.4 kg
[2017-04-23 00:14] VITALS: BP 140/79
[2017-04-23] MEDS ORDERED: EFFE150C PO (00:31)
[2017-04-23] MEDS ORDERED: EFFE37.527 PO (00:31)
[2017-04-23] MEDS ORDERED: OXYCODONE/APAP 5MG/325MG(BULK FOR ED) 1 TABLET PO ONE (01:00)
[2017-04-23] MEDS ORDERED: PERC5TAB12 PO (01:03)
[2017-04-23] MEDS ORDERED: ACET1TAB17 PO (22:31)
== END 2017-04-23 01:50 | disposition home or self-care (01) ==
LOC: M ED 00:11
DX: K08.539 Fractured dental restorative material, unspecified (principal); Z79.84 Long term (current) use of oral hypoglycemic drugs; Z79.899 Other long term (current) drug therapy; Z88.6 Allergy status to analgesic agent; Z88.1 Allergy status to other antibiotic agents; Z88.5 Allergy status to narcotic agent; Z88.0 Allergy status to penicillin

== ENCOUNTER 2017-04-23 22:15 | Emergency (ER) | payer OTHER ==
[~2017-04-23] VITALS: Ht 157.5 cm; Wt 79.5 kg
[~2017-04-23 22:15] MED LIST changes: +EFFE150C PO; +EFFE37.527 PO; +PERC5TAB12 PO
[2017-04-23 22:21] VITALS: BP 144/94
[2017-04-23] MEDS ORDERED: ACET1TAB17 PO (22:31)
[2017-04-25] MEDS ORDERED: EFFE150C PO (15:17)
[2017-04-25] MEDS ORDERED: REGL10TA6 PO (17:45)
== END 2017-04-24 01:45 | disposition left against medical advice (07) ==
LOC: M ED 22:15
DX: R22.0 Localized swelling, mass and lump, head (principal); Z53.21 Procedure and treatment not carried out due to patient leaving prior to being seen by health care provider

== ENCOUNTER 2017-04-24 04:36 | Emergency (ER) | payer OTHER ==
[~2017-04-24 04:36] MED LIST changes: +ACET1TAB17 PO
[2017-04-25] MEDS ORDERED: EFFE150C PO (15:17)
[2017-04-25] MEDS ORDERED: REGL10TA6 PO (17:45)
== END 2017-04-24 05:00 | disposition left against medical advice (07) ==
LOC: M ED 04:36
DX: R22.0 Localized swelling, mass and lump, head (principal); Z53.21 Procedure and treatment not carried out due to patient leaving prior to being seen by health care provider

== ENCOUNTER 2017-04-25 14:58 | Emergency (ER) | payer OTHER, MEDICAID ==
[~2017-04-25] VITALS: Ht 160 cm; Wt 77.3 kg
[2017-04-25] MEDS ORDERED: EFFE150C PO (15:17)
[2017-04-25] MEDS ORDERED: METOCLOPRAMIDE INJ 10MG/2ML VIAL (J2765) IV ONE (16:00)
[2017-04-25] MEDS ORDERED: NS 1,000 ML IV ONE (16:00)
[2017-04-25] MEDS ORDERED: CLINDAMYCIN 900 MG in APPROPRIATE DILUENT 1 EA IV ONE (16:00)
[2017-04-25] MEDS ORDERED: MORPHINE 4 MG/ML 1ML SYRINGE IV ONE (16:00)
[2017-04-25 16:41] LABS: BASO % 0.4 % (0.0-1.0); EOS # 0.1 K/mm3 (0.0-0.50); EOS % 1.3 % (0.0-3.0); LARGE UNSTAINED CELL # 0.1 K/mm3 (0.0-0.4); LARGE UNSTAINED CELL % 1.2 % (0.0-4.0); LYMPH # 1.5 K/mm3 (1.5-4.5); LYMPH % 20.3 % (24.0-44.0); MEAN CORPUSCULAR HEMOGLOBIN 29.4 pg (27.0-33.0); MEAN CORPUSCULAR HGB CONC 33.7 g/dl (32.0-36.5); MEAN CORPUSCULAR VOLUME 87.3 fl (80.0-96.0); MONO # 0.4 K/mm3 (0.0-0.8); MONO % 5.4 % (0.0-5.0); NEUTROPHILS % 71.4 % (36.0-66.0); PLATELET COUNT, AUTOMATED 333 k/mm3 (150-450); RED CELL DISTRIBUTION WIDTH 13.7 % (11.5-14.5)
[2017-04-25 16:42] LABS: CONTROL LINE HCG INT CTR LINE PRESENT
[2017-04-25 16:46] LABS: ANION GAP 8 MEQ/L (8-16); BLOOD UREA NITROGEN 12 MG/DL (7-18); CALCIUM LEVEL 8.9 MG/DL (8.5-10.1); CARBON DIOXIDE LEVEL 26 MEQ/L (21-32); CHLORIDE LEVEL 107 MEQ/L (98-107); CREATININE FOR GFR 0.72 MG/DL (0.55-1.02); GLOMERULAR FILTRATION RATE > 60.0 (>58); GLUCOSE, FASTING 116 MG/DL (70-105); POTASSIUM SERUM 3.9 MEQ/L (3.5-5.1); SODIUM LEVEL 141 MEQ/L (136-145)
[2017-04-25] MEDS ORDERED: ISOVUE-370 76% 100ML VIAL (Q9967) As Ordered ONE (16:53)
--- NOTE | 2017-04-25 17:39 | REP ---
Maxillofacial CT with IV contrast: The submandibular, submental and parotid salivary glands are unremarkable. The tonsillar tissues and tongue base are unremarkable. The epiglottis is unremarkable. The prevertebral soft tissues are unremarkable. No inflammatory changes or adenopathy is identified. The paranasal sinuses are unremarkable. The ocular globes and lenses are unremarkable. The orbital fat planes are unremarkable. Impression: Essentially negative maxillofacial CT. There is no evidence of inflammation, adenopathy or mass. Sign taking Signed by Abhishek Gutierrez MD 04/25/2017 05:31 P
[2017-04-25] MEDS ORDERED: REGL10TA6 PO (17:45)
[2017-04-25 18:11] VITALS: BP 132/78
== END 2017-04-25 18:14 | disposition home or self-care (01) ==
LOC: M ED 14:58
DX: K02.9 Dental caries, unspecified (principal); R68.84 Jaw pain; K13.79 Other lesions of oral mucosa; G50.1 Atypical facial pain; K58.9 Irritable bowel syndrome, unspecified; E11.9 Type 2 diabetes mellitus without complications; M79.7 Fibromyalgia; F32.9 Major depressive disorder, single episode, unspecified; F44.5 Conversion disorder with seizures or convulsions; Z79.84 Long term (current) use of oral hypoglycemic drugs; Z79.899 Other long term (current) drug therapy; Z88.6 Allergy status to analgesic agent; Z88.5 Allergy status to narcotic agent; Z88.0 Allergy status to penicillin; Z88.8 Allergy status to other drugs, medicaments and biological substances; Z88.1 Allergy status to other antibiotic agents
CPT/HCPCS: 70487; 80048; 84703; 85025; 86140; 96361; 96365; 96375; 99284; J2765; Q9967

== ENCOUNTER 2017-05-28 22:53 | Emergency (ER) | payer MEDICAID, OTHER ==
[~2017-05-28] VITALS: Ht 160 cm; Wt 83.9 kg
[~2017-05-28 22:53] MED LIST changes: +REGL10TA6 PO
[2017-05-28 22:57] VITALS: BP 141/79
[2017-05-28] MEDS ORDERED: LAMI1TAB7 (23:02)
[2017-05-28] MEDS ORDERED: ATIV1TAB10 (23:02)
[2017-05-28] MEDS ORDERED: PRAZ1CAP (23:02)
[2017-05-28] MEDS ORDERED: WELLTAB38 (23:02)
[2017-05-28] MEDS ORDERED: PERC5TAB12 PO (23:22)
[2017-05-28] MEDS ORDERED: OXYCODONE/APAP 5MG/325MG(BULK FOR ED) 1 TABLET PO ONE (23:30)
== END 2017-05-29 00:02 | disposition home or self-care (01) ==
LOC: M ED 22:53
DX: G89.29 Other chronic pain (principal); M25.511 Pain in right shoulder; E11.9 Type 2 diabetes mellitus without complications; K58.9 Irritable bowel syndrome, unspecified; F41.9 Anxiety disorder, unspecified; F32.9 Major depressive disorder, single episode, unspecified; Z79.899 Other long term (current) drug therapy; Z88.6 Allergy status to analgesic agent; Z88.5 Allergy status to narcotic agent; Z88.0 Allergy status to penicillin; Z88.8 Allergy status to other drugs, medicaments and biological substances

== ENCOUNTER 2017-07-05 11:54 | Emergency (ER) | payer MEDICAID, OTHER ==
[~2017-07-05] VITALS: Ht 157.5 cm; Wt 83.6 kg
[~2017-07-05 11:54] MED LIST changes: +ATIV1TAB10; +LAMI1TAB7; +PRAZ1CAP; +WELLTAB38
[2017-07-05] MEDS ORDERED: METOCLOPRAMIDE INJ 10MG/2ML VIAL (J2765) IV ONE (13:00)
[2017-07-05 13:11] LABS: ANION GAP 7 MEQ/L (8-16); BLOOD UREA NITROGEN 14 MG/DL (7-18); CALCIUM LEVEL 8.9 MG/DL (8.5-10.1); CARBON DIOXIDE LEVEL 25 MEQ/L (21-32); CHLORIDE LEVEL 106 MEQ/L (98-107); CREATININE FOR GFR 0.75 MG/DL (0.55-1.02); GLOMERULAR FILTRATION RATE > 60.0 (>58); GLUCOSE, FASTING 112 MG/DL (70-105); POTASSIUM SERUM 4.1 MEQ/L (3.5-5.1); SODIUM LEVEL 138 MEQ/L (136-145)
[2017-07-05 13:14] LABS: BASO % 0.6 % (0.0-1.0); EOS # 0.2 10^3/uL (0.0-0.50); EOS % 3.4 % (0.0-3.0); LYMPH # 1.5 10^3/uL (1.5-4.5); LYMPH % 22.7 % (24.0-44.0); MEAN CORPUSCULAR HEMOGLOBIN 28.2 pg (27.0-33.0); MEAN CORPUSCULAR HGB CONC 32.9 g/dl (32.0-36.5); MEAN CORPUSCULAR VOLUME 85.9 fl (80.0-96.0); MONO # 0.7 10^3/uL (0.0-0.8); NEUTROPHILS # 4.2 10^3/uL (1.8-7.7); NEUTROPHILS % 62.3 % (36.0-66.0); PLATELET COUNT, AUTOMATED 282 10^3/uL (150-450); RED CELL DISTRIBUTION WIDTH 13.1 % (11.5-14.5); WHITE BLOOD COUNT 6.8 10^3/uL (4.0-10.0)
[2017-07-05 13:20] LABS: ADD MANUAL DIFFER NO; DIFF SLIDE NUMBER 239
--- NOTE | 2017-07-05 13:22 | REP ---
CT Head without contrast HISTORY: Headache COMPARISON: 02/14/2016 There is no intraparenchymal hemorrhage, acute infarct, mass or midline shift. The ventricular system is normal in appearance. There is no extra cerebral collection. There is no fracture. The visualized sinuses are clear. IMPRESSION: There is no intracranial lesion. Signed by Carlos Hicks MD 07/05/2017 01:13 P
[2017-07-05 13:24] LABS: INR 0.92
--- NOTE | 2017-07-05 13:30 | REP ---
Chest x-ray: Two views. History: Chest pain. Findings: EKG monitoring electrodes overlie the chest. There is a granulomatous calcification projecting at the left upper lung zone peripherally. Lung del castillo are otherwise clear. Pleural angles are sharp. Heart size is normal. No significant bony abnormality is seen. Impression: No active disease. Signed by Bryce Monroy MD 07/05/2017 03:54 P
[2017-07-05] MEDS: NITROGLYCERIN 0.4 MG SUBL TABLET SL PRN ×3 (13:35→13:53)
[2017-07-05 13:53] VITALS: BP 115/69
[2017-07-05] MEDS ORDERED: MORPHINE 4 MG/ML 1ML SYRINGE IV ONE (14:15)
[2017-07-05] MEDS ORDERED: ISOVUE-370 76% 100ML VIAL (Q9967) As Ordered ONE (15:05)
--- NOTE | 2017-07-05 15:38 | REP ---
CT of the chest with IV contrast, CT pulmonary angiography: There are no emboli in the pulmonary trunk or central pulmonary arteries. There are no emboli in the lobe or segment branches. The thoracic aorta is unremarkable. There is no mediastinal or hilar adenopathy. There is minor discoid atelectasis in the right middle lobe and in the lingula. Lung del castillo otherwise clear. Cardiac size is normal. There is no pericardial effusion. The visualized upper abdominal contents are unremarkable. Impression: There are no pulmonary emboli. There are no infiltrates, effusions, masses or adenopathy. A calcified granuloma is incidentally identified in the left upper lobe. Negative CT study of the chest. Signed by Abhishek Gutierrez MD 07/05/2017 03:29 P
[2017-07-05 17:01] VITALS: BP 137/86
--- NOTE | 2017-07-06 07:51 | ECGEPIP ---
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
== END 2017-07-05 17:02 | disposition home or self-care (01) ==
LOC: M ED 11:54
DX: R51 Headache (principal); I10 Essential (primary) hypertension; E11.9 Type 2 diabetes mellitus without complications; E07.9 Disorder of thyroid, unspecified; M79.7 Fibromyalgia; R56.9 Unspecified convulsions; F41.9 Anxiety disorder, unspecified; F33.9 Major depressive disorder, recurrent, unspecified; Z79.84 Long term (current) use of oral hypoglycemic drugs; Z79.899 Other long term (current) drug therapy; Z88.8 Allergy status to other drugs, medicaments and biological substances; Z88.1 Allergy status to other antibiotic agents; Z88.5 Allergy status to narcotic agent; Z88.0 Allergy status to penicillin
CPT/HCPCS: 36415; 70450; 71020; 71275; 80048; 82550; 82553; 85025; 85610; 85730; 93000; 93041; 94760; 96374; 96375; 99285; J2765; Q9967

== ENCOUNTER 2017-07-08 22:48 | Emergency (ER) | payer OTHER ==
[~2017-07-08] VITALS: Ht 157.5 cm; Wt 77.3 kg
[2017-07-08] MEDS ORDERED: FAMOTIDINE IV BAG 20 MG in APPROPRIATE DILUENT 1 EA IV ONE (23:30)
[2017-07-08] MEDS ORDERED: methylPREDNISolone INJ 125 MG/2 ML VIAL (J2930) IV ONE (23:30)
[2017-07-08] MEDS ORDERED: diphenhydrAMINE INJ 50MG/ML VIAL (J1200) IV ONE (23:30)
[2017-07-08] MEDS ORDERED: METOCLOPRAMIDE INJ 10MG/2ML VIAL (J2765) IV ONE (23:30)
[2017-07-08] MEDS ORDERED: NS 1,000 ML IV ONE (23:30)
[2017-07-09 01:18] VITALS: BP 149/79
== END 2017-07-09 01:22 | disposition home or self-care (01) ==
LOC: M ED 22:48
DX: R06.02 Shortness of breath (principal); T39.011A Poisoning by aspirin, accidental (unintentional), initial encounter; Y92.9 Unspecified place or not applicable; Y93.9 Activity, unspecified; I51.9 Heart disease, unspecified; Z82.49 Family history of ischemic heart disease and other diseases of the circulatory system; Z79.899 Other long term (current) drug therapy; Z88.6 Allergy status to analgesic agent; Z88.5 Allergy status to narcotic agent; Z88.0 Allergy status to penicillin; Z88.8 Allergy status to other drugs, medicaments and biological substances
CPT/HCPCS: 93041; 94760; 96374; 96375; 99284; J1200; J2765; J2930

== ENCOUNTER → 2017-07-11 | Outpatient (REF) | payer OTHER ==
[~2017-07-11] MED LIST changes: +TRIL150T PO; +VENTAER IN; +ZITHTAB PO
== END ==
LOC: M SFHCLERA 17:33
PROVIDERS: ATTEND Family Medicine
DX: E03.9 Hypothyroidism, unspecified (principal)

== ENCOUNTER → 2017-07-12 | Outpatient (CLI) | payer OTHER ==
[2017-07-12 16:11] LABS: ANION GAP 5 MEQ/L (8-16); BLOOD UREA NITROGEN 7 MG/DL (7-18); CALCIUM LEVEL 8.9 MG/DL (8.5-10.1); CARBON DIOXIDE LEVEL 28 MEQ/L (21-32); CHLORIDE LEVEL 108 MEQ/L (98-107); CREATININE FOR GFR 0.78 MG/DL (0.55-1.02); GLOMERULAR FILTRATION RATE > 60.0 (>58); GLUCOSE, FASTING 100 MG/DL (70-105); POTASSIUM SERUM 4.2 MEQ/L (3.5-5.1); SODIUM LEVEL 141 MEQ/L (136-145)
== END ==
LOC: M LAB 14:39
PROVIDERS: ATTEND Physician Assistant Surgical
DX: Z01.818 Encounter for other preprocedural examination (principal); M75.111 Incomplete rotator cuff tear or rupture of right shoulder, not specified as traumatic

== ENCOUNTER 2017-08-13 22:23 | Emergency (ER) | payer OTHER, MEDICAID ==
[~2017-08-13] VITALS: Ht 157.5 cm; Wt 81.8 kg
[~2017-08-13 22:23] MED LIST changes: -TRIL150T PO; -VENTAER IN; -ZITHTAB PO
[2017-08-13 22:24] VITALS: BP 158/88
[2017-08-13] MEDS ORDERED: TRIL150T PO (22:33)
[2017-08-13] MEDS ORDERED: IPRATROPIUM 0.5MG/ALBUTEROL 2.5MG INH SOL UD 3ML (DUONEB)(J7620) NEB ONE (22:45)
[2017-08-13] MEDS ORDERED: ZITHTAB PO (23:22)
[2017-08-13] MEDS ORDERED: VENTAER IN (23:22)
--- NOTE | 2017-08-14 08:15 | REP ---
Clinical: Cough. Technique: PA and lateral. Comparison: 07/05/2017. Findings: Trace bibasilar atelectasis noted. No discrete focal consolidation, obvious effusion, or pneumothorax. Mediastinum and cardiac silhouette are normal. Skeletal structures are intact. Impression: Trace basilar atelectasis. Signed by Karel Anne MD 08/14/2017 08:06 A
== END 2017-08-13 23:38 | disposition home or self-care (01) ==
LOC: M ED 22:23
DX: J45.901 Unspecified asthma with (acute) exacerbation (principal); J20.9 Acute bronchitis, unspecified; I10 Essential (primary) hypertension; K58.9 Irritable bowel syndrome, unspecified; E11.9 Type 2 diabetes mellitus without complications; M79.7 Fibromyalgia; F44.5 Conversion disorder with seizures or convulsions; Z79.84 Long term (current) use of oral hypoglycemic drugs; Z79.899 Other long term (current) drug therapy; Z88.6 Allergy status to analgesic agent; Z88.5 Allergy status to narcotic agent; Z88.0 Allergy status to penicillin; Z88.1 Allergy status to other antibiotic agents

== ENCOUNTER 2017-08-21 23:39 | Emergency (ER) | payer MEDICAID, OTHER ==
[~2017-08-21] VITALS: Ht 157.5 cm; Wt 79.5 kg
[~2017-08-21 23:39] MED LIST changes: +TRIL150T PO; +VENTAER IN; +ZITHTAB PO
[2017-08-21] MEDS ORDERED: TRIL150T PO (23:46)
[2017-08-22] MEDS ORDERED: methylPREDNISolone INJ 125 MG/2 ML VIAL (J2930) IM ONE (00:30)
[2017-08-22] MEDS ORDERED: diphenhydrAMINE INJ 50MG/ML VIAL (J1200) IM ONE (00:30)
[2017-08-22 00:48] VITALS: BP 137/86
== END 2017-08-22 01:04 | disposition home or self-care (01) ==
LOC: M ED 23:39
DX: T78.40XA Allergy, unspecified, initial encounter (principal); L50.9 Urticaria, unspecified
CPT/HCPCS: 96372; 99283; J1200; J2930

== ENCOUNTER 2017-08-30 23:26 | Emergency (ER) | payer MEDICAID, OTHER ==
[~2017-08-30] VITALS: Ht 157.5 cm; Wt 81.8 kg
[2017-08-30 23:27] VITALS: BP 142/73
[2017-08-31] MEDS ORDERED: OXYCODONE/APAP 5MG/325MG(BULK FOR ED) 1 TABLET PO ONE (00:15)
== END 2017-08-31 00:23 | disposition home or self-care (01) ==
LOC: M ED 23:26
DX: L76.22 Postprocedural hemorrhage of skin and subcutaneous tissue following other procedure (principal); I10 Essential (primary) hypertension; E11.9 Type 2 diabetes mellitus without complications; M79.7 Fibromyalgia; F44.5 Conversion disorder with seizures or convulsions; Z79.84 Long term (current) use of oral hypoglycemic drugs; Z79.899 Other long term (current) drug therapy; Z88.6 Allergy status to analgesic agent; Z88.1 Allergy status to other antibiotic agents; Z88.5 Allergy status to narcotic agent; Z88.0 Allergy status to penicillin; Z88.8 Allergy status to other drugs, medicaments and biological substances

== ENCOUNTER 2017-09-07 16:55 | Emergency (ER) | payer OTHER ==
[~2017-09-07] VITALS: Ht 157.5 cm; Wt 79.5 kg
[2017-09-07] MEDS ORDERED: NS 1,000 ML IV ONE (17:30)
[2017-09-07] MEDS ORDERED: CLINDAMYCIN 900 MG in APPROPRIATE DILUENT 1 EA IV ONE (17:30)
[2017-09-07] MEDS ORDERED: CLEO300C2 PO (18:32)
[2017-09-07] MEDS ORDERED: PERC5TAB12 PO (18:38)
[2017-09-07 18:53] VITALS: BP 141/88
== END 2017-09-07 18:54 | disposition home or self-care (01) ==
LOC: M ED 16:55
DX: L03.90 Cellulitis, unspecified (principal); J45.909 Unspecified asthma, uncomplicated; K58.9 Irritable bowel syndrome, unspecified; F41.9 Anxiety disorder, unspecified; F32.9 Major depressive disorder, single episode, unspecified; Z79.84 Long term (current) use of oral hypoglycemic drugs; Z79.899 Other long term (current) drug therapy; Z88.6 Allergy status to analgesic agent; Z88.1 Allergy status to other antibiotic agents; Z88.5 Allergy status to narcotic agent; Z88.0 Allergy status to penicillin; Z88.8 Allergy status to other drugs, medicaments and biological substances

== ENCOUNTER 2017-09-10 20:29 | Emergency (ER) | payer OTHER ==
[~2017-09-10] VITALS: Ht 157.5 cm; Wt 79.5 kg
[~2017-09-10 20:29] MED LIST changes: +CLEO300C2 PO
[2017-09-10] MEDS ORDERED: MORPHINE 4 MG/ML 1ML SYRINGE IV PRN (22:15)
[2017-09-10] MEDS ORDERED: NS 1,000 ML IV ONE (22:15)
[2017-09-10] MEDS ORDERED: PROMETHAZINE INJ 25 MG/ML VIAL (J2550) IV ONE (22:15)
[2017-09-10 22:35] LABS: BASO % 0.4 % (0.0-1.0); EOS # 0.3 10^3/uL (0.0-0.50); EOS % 3.8 % (0.0-3.0); IMMATURE GRANULOCYTE % 1.1 % (0-0); LYMPH # 1.7 10^3/uL (1.5-4.5); LYMPH % 20.1 % (24.0-44.0); MEAN CORPUSCULAR HEMOGLOBIN 27.8 pg (27.0-33.0); MEAN CORPUSCULAR HGB CONC 32.7 g/dl (32.0-36.5); MEAN CORPUSCULAR VOLUME 85.1 fl (80.0-96.0); MONO # 0.7 10^3/uL (0.0-0.8); MONO % 8.9 % (0.0-5.0); NEUTROPHILS # 5.4 10^3/uL (1.8-7.7); NEUTROPHILS % 65.7 % (36.0-66.0); PLATELET COUNT, AUTOMATED 372 10^3/uL (150-450); RED CELL DISTRIBUTION WIDTH 13.2 % (11.5-14.5); WHITE BLOOD COUNT 8.2 10^3/uL (4.0-10.0)
[2017-09-10 22:51] LABS: ERYTHROCYTE SEDIMENTATION RATE 69 mm/hr (0-20)
[2017-09-10 22:55] LABS: ANION GAP 8 MEQ/L (8-16); BLOOD UREA NITROGEN 8 MG/DL (7-18); CALCIUM LEVEL 8.7 MG/DL (8.5-10.1); CARBON DIOXIDE LEVEL 29 MEQ/L (21-32); CHLORIDE LEVEL 102 MEQ/L (98-107); CREATININE FOR GFR 0.76 MG/DL (0.55-1.02); GLOMERULAR FILTRATION RATE > 60.0 (>58); GLUCOSE, FASTING 112 MG/DL (70-105); POTASSIUM SERUM 3.9 MEQ/L (3.5-5.1); SODIUM LEVEL 139 MEQ/L (136-145)
[2017-09-11 01:05] VITALS: BP 120/59
[2017-09-11] MEDS ORDERED: CLINDAMYCIN 150 MG CAP PO ONE (01:15)
== END 2017-09-11 01:12 | disposition home or self-care (01) ==
LOC: M ED 20:29
DX: N61.0 Mastitis without abscess (principal); G89.18 Other acute postprocedural pain; E11.9 Type 2 diabetes mellitus without complications; I10 Essential (primary) hypertension; K58.9 Irritable bowel syndrome, unspecified; Z79.84 Long term (current) use of oral hypoglycemic drugs; Z79.899 Other long term (current) drug therapy; Z88.6 Allergy status to analgesic agent; Z88.5 Allergy status to narcotic agent; Z88.0 Allergy status to penicillin; Z88.8 Allergy status to other drugs, medicaments and biological substances

== ENCOUNTER → 2017-11-14 | Outpatient (REF) | LOC: M SMT 12:11 | DX: Z02.9 Encounter for administrative examinations, unspecified (principal) ==

== ENCOUNTER 2018-02-10 11:57 | Emergency (ER) | payer OTHER, MEDICAID ==
[2018-02-10] MEDS: KETOROLAC 60 MG/2 ML VIAL (J1885) IM (13:04)
[2018-02-10] MEDS: diazePAM 5 MG TAB PO (13:04)
== END 2018-02-10 14:43 | disposition home or self-care (01) ==
LOC: M ED 11:57
DX: M43.16 Spondylolisthesis, lumbar region (principal); M51.27 Other intervertebral disc displacement, lumbosacral region; E11.9 Type 2 diabetes mellitus without complications; I10 Essential (primary) hypertension; E03.9 Hypothyroidism, unspecified; M79.7 Fibromyalgia; F41.9 Anxiety disorder, unspecified; F32.9 Major depressive disorder, single episode, unspecified; F44.5 Conversion disorder with seizures or convulsions; Z79.84 Long term (current) use of oral hypoglycemic drugs; Z79.899 Other long term (current) drug therapy; Z88.6 Allergy status to analgesic agent; Z88.5 Allergy status to narcotic agent; Z88.0 Allergy status to penicillin; Z88.8 Allergy status to other drugs, medicaments and biological substances; Z88.1 Allergy status to other antibiotic agents
CPT/HCPCS: J1885

== ENCOUNTER → 2018-03-13 | Outpatient (REF) | payer OTHER ==
[2018-03-13 16:53] LABS: BASO # 0.1 10^3/uL (0.0-0.2); BASO % 0.8 % (0.0-1.0); EOS # 0.2 10^3/uL (0.0-0.50); EOS % 2.3 % (0.0-3.0); HEMATOCRIT 39.6 % (36.0-47.0); HEMOGLOBIN 12.4 g/dl (12.0-15.5); IMMATURE GRANULOCYTE % 0.6 % (0-3.0); LYMPH # 2.2 10^3/uL (1.5-4.5); LYMPH % 27.4 % (24.0-44.0); MEAN CORPUSCULAR HEMOGLOBIN 27.5 pg (27.0-33.0); MEAN CORPUSCULAR HGB CONC 31.3 g/dl (32.0-36.5); MEAN CORPUSCULAR VOLUME 87.8 fl (80.0-96.0); MONO # 0.7 10^3/uL (0.0-0.8); MONO % 8.2 % (0.0-5.0); NEUTROPHILS # 4.8 10^3/uL (1.8-7.7); NEUTROPHILS % 60.7 % (36.0-66.0); PLATELET COUNT, AUTOMATED 309 10^3/uL (150-450); RED BLOOD COUNT 4.51 10^6/uL (4.00-5.40); RED CELL DISTRIBUTION WIDTH 14.6 % (11.5-14.5)
[2018-03-13 17:06] LABS: ESTIMATED AVERAGE GLUCOSE 128 MG/DL (60-110); HEMOGLOBIN A1c 6.1 %
[2018-03-13 17:08] LABS: ANION GAP 10 MEQ/L (8-16); BLOOD UREA NITROGEN 15 MG/DL (7-18); CALCIUM LEVEL 8.9 MG/DL (8.5-10.1); CARBON DIOXIDE LEVEL 24 MEQ/L (21-32); CHLORIDE LEVEL 108 MEQ/L (98-107); CREATININE FOR GFR 0.95 MG/DL (0.55-1.30); GLOMERULAR FILTRATION RATE > 60.0 (>58); GLUCOSE, FASTING 93 MG/DL (70-100); POTASSIUM SERUM 4.3 MEQ/L (3.5-5.1); SODIUM LEVEL 142 MEQ/L (136-145)
== END ==
LOC: M SFHCLERA 11:48
DX: E03.9 Hypothyroidism, unspecified (principal); E11.9 Type 2 diabetes mellitus without complications; I10 Essential (primary) hypertension

== ENCOUNTER → 2018-04-09 | Outpatient (REF) | payer OTHER ==
[2018-04-09 21:31] LABS: HIV 1&2 SCREEN CENTAUR NEGATIVE (NEGATIVE)
[2018-04-09 22:53] LABS: CHLAMYDIA DNA AMPLIFICATION NEGATIVE (NEGATIVE); GC DNA AMPLIFICATION NEGATIVE (NEGATIVE)
[2018-04-11 11:40] LABS: HEPATITIS B SURFACE ANTIGEN NEGATIVE (NEGATIVE)
== END ==
LOC: M SFHCLERA 12:43
DX: Z01.818 Encounter for other preprocedural examination (principal); Z11.3 Encounter for screening for infections with a predominantly sexual mode of transmission
CPT/HCPCS: 87340

== ENCOUNTER 2018-04-16 05:52 | Inpatient (IN) | payer OTHER ==
[2018-04-16] MEDS: LR 1,000 ML IV ×2 (06:00→13:41)
[2018-04-16] MEDS: VANCOMYCIN HCL 1,000 MG, VIAL MATE ADAPTER 1 EACH in D5W 250 ML IV (06:00)
[2018-04-16] MEDS ORDERED: PERCOCET 5MG/325MG TAB As Ordered (06:23)
[2018-04-16 06:52] LABS: BEDSIDE GLUCOSE 118 MG/DL (70-105)
[2018-04-16] MEDS: PERCOCET 5MG/325MG TAB PO ×3 (06:54→20:36)
[2018-04-16] MEDS: GABAPENTIN 300 MG CAP PO ×3 (06:58→20:35)
[2018-04-16] MEDS ORDERED: fentaNYL 100 MCG/2 ML INJECTION (J3010) As Ordered (07:15)
[2018-04-16] MEDS ORDERED: dexameTHASONE 4 MG/ML 1ML VIAL (J1100) As Ordered (07:15)
[2018-04-16] MEDS ORDERED: ROCURONIUM BROMIDE 50 MG/5 ML VIAL As Ordered (07:15)
[2018-04-16] MEDS ORDERED: LIDOCAINE 2% INJ 100 MG/5 ML SDV (FOR ANES.) As Ordered (07:15)
[2018-04-16] MEDS ORDERED: PROPOFOL 200 MG/20 ML VIAL As Ordered (07:15)
[2018-04-16] MEDS ORDERED: MIDAZOLAM INJ 2 MG/2 ML VIAL (J2250) As Ordered (07:16)
[2018-04-16] MEDS ORDERED: HYDROmorphone HCL 2 MG/ML 1ML VIAL (J1170) As Ordered (08:12)
[2018-04-16] MEDS: LIDOCAINE W/EPINEPHRINE 1% 20ML VIAL As Ordered (08:25)
[2018-04-16] MEDS: BUPIVACAINE LIPOSOME/PF 1.3% 20 ML VIAL (13.3MG/ML)(EXPAREL) As Ordered (08:25)
[2018-04-16] MEDS: THROMBIN SOLN 20,000 UNITS KIT As Ordered (08:25)
[2018-04-16] MEDS: BACITRACIN PWD 50,000 UNITS VIAL As Ordered (08:25)
[2018-04-16] MEDS: BUPIVACAINE HCL 0.5% 10 ML VIAL As Ordered (08:25)
[2018-04-16] MEDS: BUPIVACAINE/EPIN 0.25% 30 ML VIAL As Ordered (08:25)
[2018-04-16] MEDS ORDERED: PHENYLephrine HCL 500 MCG/5 ML (100MCG/ML) SYRINGE (J2370) As Ordered (08:36)
[2018-04-16] MEDS ORDERED: PHENYLEPHRINE INJ 10MG/ML VIAL (J2370) As Ordered ×4 (08:36→12:05)
[2018-04-16] MEDS: METAMUCIL (PSYLLIUM) PACKET PO (09:00)
[2018-04-16] MEDS: ASCORBIC ACID 500 MG TAB PO ×2 (09:00→20:35)
[2018-04-16] MEDS: MOM 30ML SUSPENSION UDC PO (09:00)
[2018-04-16] MEDS ORDERED: NEOSTIGMINE 10 MG/10 ML VIAL (J2710) As Ordered (11:06)
[2018-04-16] MEDS ORDERED: GLYCOPYRROLATE INJ 0.2 MG/ML 2 ML VIAL As Ordered (11:06)
[2018-04-16] MEDS: VANCOMYCIN HCL 500 MG/10 ML VIAL (J3370) As Ordered (11:08)
[2018-04-16] MEDS: CLINDAMYCIN 600 MG/50 ML PREMIX BAG As Ordered (12:50)
[2018-04-16] MEDS ORDERED: fentaNYL 100 MCG/2 ML INJECTION (J3010) IV (14:30)
[2018-04-16] MEDS ORDERED: PERCOCET 5MG/325MG TAB PO (14:30)
[2018-04-16] MEDS ORDERED: HYDROMORPHONE HCL 0.5 MG/ 0.5 ML SYRINGE (J1170 PER 1) IV (14:30)
[2018-04-16] MEDS ORDERED: ONDANSETRON 4MG/2ML VIAL (J2405) IV (14:30)
[2018-04-16] MEDS ORDERED: diphenhydrAMINE INJ 50MG/ML VIAL (J1200) As Ordered (16:12)
[2018-04-16] MEDS: D5W/0.45% SODIUM CHLORIDE 1,000 ML IV (16:47)
[2018-04-16] MEDS: HYDROMORPHONE HCL 0.5 MG/ 0.5 ML SYRINGE (J1170 PER 1) IV ×2 (16:47→23:34)
[2018-04-16 16:56] LABS: BEDSIDE GLUCOSE 204 MG/DL (70-105)
[2018-04-16] MEDS ORDERED: VANCOMYCIN HCL 1,000 MG, VIAL MATE ADAPTER 1 EACH in D5W 250 ML IV (19:00)
[2018-04-16] MEDS ORDERED: MIRTAZAPINE 15 MG TAB PO (21:00)
[2018-04-16] MEDS: CLINDAMYCIN 600 MG in APPROPRIATE DILUENT 1 EA IV (21:15)
[2018-04-17] MEDS: HYDROMORPHONE HCL 0.5 MG/ 0.5 ML SYRINGE (J1170 PER 1) IV ×3 (04:00→11:38)
[2018-04-17] MEDS: MOM 30ML SUSPENSION UDC PO (08:51)
[2018-04-17] MEDS: METAMUCIL (PSYLLIUM) PACKET PO (08:51)
[2018-04-17] MEDS: LEVOTHYROXINE 88MCG TABLET (0.088 MG) PO (08:51)
[2018-04-17] MEDS: ASCORBIC ACID 500 MG TAB PO ×2 (08:52→21:49)
[2018-04-17] MEDS: tiZANidine 4 MG TAB PO (08:52)
[2018-04-17] MEDS: VENLAFAXINE **XR** 75MG CAPSULE PO (08:52)
[2018-04-17] MEDS: LISINOPRIL 20 MG TAB PO (08:52)
[2018-04-17] MEDS: GABAPENTIN 300 MG CAP PO ×3 (08:52→21:49)
[2018-04-17] MEDS: PERCOCET 5MG/325MG TAB PO (08:53)
[2018-04-17] MEDS: NS 500 ML IV ×2 (12:00→20:30)
[2018-04-17] MEDS ORDERED: diphenhydrAMINE 25 MG CAP PO (12:00)
[2018-04-17] MEDS: LR 1,000 ML IV (13:00)
[2018-04-17] MEDS: ACETAMINOPHEN 500 MG TAB PO ×2 (14:07→21:50)
[2018-04-17] MEDS: NS 1,000 ML IV ×4 (15:32→20:15)
[2018-04-17 16:04] LABS: HEMATOCRIT 28.1 % (36.0-47.0); MEAN CORPUSCULAR HEMOGLOBIN 28.2 pg (27.0-33.0); MEAN CORPUSCULAR VOLUME 88.1 fl (80.0-96.0); PLATELET COUNT, AUTOMATED 190 10^3/uL (150-450); RED BLOOD COUNT 3.19 10^6/uL (4.00-5.40); RED CELL DISTRIBUTION WIDTH 13.5 % (11.5-14.5); WHITE BLOOD COUNT 10.3 10^3/uL (4.0-10.0)
[2018-04-17 16:31] LABS: ANION GAP 6 MEQ/L (8-16); BLOOD UREA NITROGEN 17 MG/DL (7-18); CALCIUM LEVEL 7.8 MG/DL (8.5-10.1); CARBON DIOXIDE LEVEL 24 MEQ/L (21-32); CHLORIDE LEVEL 106 MEQ/L (98-107); CREATININE FOR GFR 1.15 MG/DL (0.55-1.30); GLOMERULAR FILTRATION RATE 55.1 (>58); GLUCOSE, FASTING 122 MG/DL (70-100); POTASSIUM SERUM 3.8 MEQ/L (3.5-5.1); SODIUM LEVEL 136 MEQ/L (136-145)
[2018-04-17] MEDS: CelecoXIB 400 MG CAP PO (17:41)
[2018-04-18] MEDS: ACETAMINOPHEN 500 MG TAB PO ×5 (05:30→22:56)
[2018-04-18] MEDS: LEVOTHYROXINE 88MCG TABLET (0.088 MG) PO (05:30)
[2018-04-18 07:59] LABS: BASO % 0.2 % (0.0-1.0); EOS # 0.1 10^3/uL (0.0-0.50); EOS % 0.6 % (0.0-3.0); HEMATOCRIT 28.6 % (36.0-47.0); HEMOGLOBIN 9.5 g/dl (12.0-15.5); IMMATURE GRANULOCYTE % 0.7 % (0-3.0); LYMPH # 1.1 10^3/uL (1.5-4.5); MEAN CORPUSCULAR HEMOGLOBIN 28.4 pg (27.0-33.0); MEAN CORPUSCULAR HGB CONC 33.2 g/dl (32.0-36.5); MEAN CORPUSCULAR VOLUME 85.6 fl (80.0-96.0); MONO # 0.6 10^3/uL (0.0-0.8); MONO % 5.6 % (0.0-5.0); NEUTROPHILS # 8.4 10^3/uL (1.8-7.7); NEUTROPHILS % 81.9 % (36.0-66.0); PLATELET COUNT, AUTOMATED 203 10^3/uL (150-450); RED BLOOD COUNT 3.34 10^6/uL (4.00-5.40); RED CELL DISTRIBUTION WIDTH 13.7 % (11.5-14.5); WHITE BLOOD COUNT 10.3 10^3/uL (4.0-10.0)
[2018-04-18 08:23] LABS: LACTIC ACID SEPSIS PROTOCOL 0.8 MMOL/L (0.4-2.0)
[2018-04-18 08:31] LABS: ALBUMIN 2.3 GM/DL (3.2-5.2); ALBUMIN/GLOBULIN RATIO 0.72 (1.00-1.93); ALKALINE PHOSPHATASE 76 U/L (45-117); ALT/SGPT 26 U/L (12-78); ANION GAP 6 MEQ/L (8-16); AST/SGOT 39 U/L (7-37); BILIRUBIN,TOTAL 0.3 MG/DL (0.2-1.0); BLOOD UREA NITROGEN 10 MG/DL (7-18); CALCIUM LEVEL 7.9 MG/DL (8.5-10.1); CARBON DIOXIDE LEVEL 23 MEQ/L (21-32); CHLORIDE LEVEL 115 MEQ/L (98-107); CREATININE FOR GFR 0.65 MG/DL (0.55-1.30); GLOMERULAR FILTRATION RATE > 60.0 (>58); GLUCOSE, FASTING 121 MG/DL (70-100); MAGNESIUM LEVEL 1.8 MG/DL (1.8-2.4); POTASSIUM SERUM 3.9 MEQ/L (3.5-5.1); SODIUM LEVEL 144 MEQ/L (136-145); T UPTAKE 40 % (30-39); THYROXINE (T4) 7.6 UG/DL (4.5-12.0); TOTAL PROTEIN 5.5 GM/DL (6.4-8.2)
[2018-04-18] MEDS: traMADol 50 MG TAB PO ×2 (10:09→20:03)
[2018-04-18] MEDS: SENOKOT S TAB PO ×2 (10:10→20:02)
[2018-04-18] MEDS: COSYNTROPIN 0.25 MG/ML VIAL (J0834 PER 0.25MG) IV (10:10)
[2018-04-18] MEDS: VENLAFAXINE **XR** 75MG CAPSULE PO (10:11)
[2018-04-18] MEDS: GABAPENTIN 300 MG CAP PO ×3 (10:11→20:02)
[2018-04-18] MEDS: ASCORBIC ACID 500 MG TAB PO ×2 (10:11→20:02)
[2018-04-18] MEDS: MOM 30ML SUSPENSION UDC PO (10:12)
[2018-04-18] MEDS: METAMUCIL (PSYLLIUM) PACKET PO (10:12)
[2018-04-18] MEDS: MAGNESIUM CITRATE 300 ML BTL PO ×2 (10:12→20:02)
[2018-04-18] MEDS: MIRALAX *UNIT DOSE* 17GM PACKET PO (10:12)
[2018-04-18] MEDS ORDERED: MAGNESIUM CITRATE 300 ML BTL PO (11:30)
[2018-04-18 11:39] LABS: CORTISOL 30 MINUTES 24.2 UG/DL
[2018-04-18] MEDS: PROMETHAZINE INJ 25 MG/ML VIAL (J2550) IV ×2 (11:48→20:40)
[2018-04-18 13:20] LABS: CORTISOL BASELINE 6.8 UG/DL (4.3-22.4)
[2018-04-18 13:27] LABS: CORTISOL 60 MINUTES 27.7 UG/DL
[2018-04-19] MEDS: traMADol 50 MG TAB PO ×2 (03:55→11:30)
[2018-04-19] MEDS: ACETAMINOPHEN 500 MG TAB PO ×2 (06:23→15:07)
[2018-04-19] MEDS: LEVOTHYROXINE 88MCG TABLET (0.088 MG) PO (06:23)
[2018-04-19] MEDS: METAMUCIL (PSYLLIUM) PACKET PO (09:00)
[2018-04-19] MEDS: SENOKOT S TAB PO (09:00)
[2018-04-19] MEDS: MOM 30ML SUSPENSION UDC PO (09:00)
[2018-04-19] MEDS: MIRALAX *UNIT DOSE* 17GM PACKET PO (09:00)
[2018-04-19] MEDS: VENLAFAXINE **XR** 75MG CAPSULE PO (09:34)
[2018-04-19] MEDS: GABAPENTIN 300 MG CAP PO ×2 (09:34→15:07)
[2018-04-19] MEDS: ASCORBIC ACID 500 MG TAB PO (09:35)
[2018-04-19 11:18] LABS: CORTISOL AM 11.2 UG/DL (4.3-22.4)
== END 2018-04-19 18:05 | disposition home or self-care (01) | DRG 304 ==
LOC: M OR 05:52 → M MS5PR 15:15
PROVIDERS: Orthopaedic Surgery
PROC: 0SG0071 Fusion of Lumbar Vertebral Joint with Autologous Tissue Substitute, Posterior Approach, Posterior Column, Open Approach (ICD-10-PCS; principal; 2018-04-16 07:30)
PROC: 01NB0ZZ Release Lumbar Nerve, Open Approach (ICD-10-PCS; 2018-04-16 07:30)
PROC: 0QB23ZZ Excision of Right Pelvic Bone, Percutaneous Approach (ICD-10-PCS; 2018-04-16 07:30)
DX: M43.16 Spondylolisthesis, lumbar region (principal); I95.9 Hypotension, unspecified; M48.062 Spinal stenosis, lumbar region with neurogenic claudication; E11.9 Type 2 diabetes mellitus without complications; G43.909 Migraine, unspecified, not intractable, without status migrainosus; T40.2X5A Adverse effect of other opioids, initial encounter; F32.9 Major depressive disorder, single episode, unspecified; F41.9 Anxiety disorder, unspecified; M62.838 Other muscle spasm; M54.12 Radiculopathy, cervical region; E03.9 Hypothyroidism, unspecified; I10 Essential (primary) hypertension; G40.909 Epilepsy, unspecified, not intractable, without status epilepticus; Z79.899 Other long term (current) drug therapy; Z88.0 Allergy status to penicillin; Z88.1 Allergy status to other antibiotic agents; Z98.51 Tubal ligation status; Z91.048 Other nonmedicinal substance allergy status; Z88.5 Allergy status to narcotic agent; Z88.8 Allergy status to other drugs, medicaments and biological substances

== ENCOUNTER → 2018-04-25 | Outpatient (REF) | payer OTHER ==
[2018-04-25 15:41] LABS: C REACTIVE PROTEIN QUANTITATIV 4.34 MG/DL (0.00-0.30)
[2018-04-25 16:16] LABS: ERYTHROCYTE SEDIMENTATION RATE 115 mm/hr (0-20)
== END ==
LOC: M LABDRAW1 11:21
DX: Z47.89 Encounter for other orthopedic aftercare (principal)
CPT/HCPCS: 86140

== ENCOUNTER 2018-05-04 19:09 | Emergency (ER) | payer MEDICAID, OTHER ==
[2018-05-04 19:34] LABS: HEMATOCRIT 32.9 % (36.0-47.0); HEMOGLOBIN 10.5 g/dl (12.0-15.5); MEAN CORPUSCULAR HEMOGLOBIN 27.3 pg (27.0-33.0); MEAN CORPUSCULAR HGB CONC 31.9 g/dl (32.0-36.5); MEAN CORPUSCULAR VOLUME 85.7 fl (80.0-96.0); PLATELET COUNT, AUTOMATED 486 10^3/uL (150-450); RED BLOOD COUNT 3.84 10^6/uL (4.00-5.40); RED CELL DISTRIBUTION WIDTH 13.2 % (11.5-14.5); WHITE BLOOD COUNT 10.5 10^3/uL (4.0-10.0)
[2018-05-04] MEDS: CHARCOAL ACTIVATED LIQUID 25 GM/120 ML BTL PO (20:00)
[2018-05-04 20:05] LABS: ALBUMIN 3.7 GM/DL (3.2-5.2); ALBUMIN/GLOBULIN RATIO 0.93 (1.00-1.93); ALKALINE PHOSPHATASE 150 U/L (45-117); ALT/SGPT 22 U/L (12-78); ANION GAP 10 MEQ/L (8-16); AST/SGOT 12 U/L (7-37); BILIRUBIN,DIRECT < 0.1 MG/DL (0.0-0.2); BILIRUBIN,TOTAL 0.3 MG/DL (0.2-1.0); BLOOD UREA NITROGEN 15 MG/DL (7-18); CALCIUM LEVEL 9.1 MG/DL (8.5-10.1); CARBON DIOXIDE LEVEL 23 MEQ/L (21-32); CHLORIDE LEVEL 110 MEQ/L (98-107); CREATININE FOR GFR 0.95 MG/DL (0.55-1.30); ETHYL ALCOHOL (ETHANOL) < 0.003 % (0.000-0.010); GLOMERULAR FILTRATION RATE > 60.0 (>58); GLUCOSE, FASTING 114 MG/DL (70-100); POTASSIUM SERUM 4.2 MEQ/L (3.5-5.1); SALICYLATE LEVEL < 1.7 MG/DL (5.0-30.0); SODIUM LEVEL 143 MEQ/L (136-145); TOTAL PROTEIN 7.7 GM/DL (6.4-8.2)
[2018-05-04 20:13] LABS: ACETAMINOPHEN LEVEL < 2.0 UG/ML (10.0-30.0)
[2018-05-04 20:20] LABS: AMPHETAMINES LEVEL URINE NEGATIVE (NEGATIVE); BARBITURATES URINE NEGATIVE (NEGATIVE); BENZODIAZEPINES URINE NEGATIVE (NEGATIVE); CANNABINOIDS URINE NEGATIVE (NEGATIVE); COCAINE METABOLITE URINE NEGATIVE (NEGATIVE); METHADONE URINE NEGATIVE (NEGATIVE); OPIATES URINE POSITIVE (NEGATIVE); PHENCYCLIDINE URINE NEGATIVE (NEGATIVE)
[2018-05-04 21:32] LABS: LACTIC ACID SEPSIS PROTOCOL 0.7 MMOL/L (0.4-2.0)
== END 2018-05-04 23:53 | disposition other institution (70) ==
LOC: M ED 19:09
DX: T42.72XA Poisoning by unspecified antiepileptic and sedative-hypnotic drugs, intentional self-harm, initial encounter (principal); T42.8X2A Poisoning by antiparkinsonism drugs and other central muscle-tone depressants, intentional self-harm, initial encounter; T40.2X2A Poisoning by other opioids, intentional self-harm, initial encounter; F43.0 Acute stress reaction; R00.0 Tachycardia, unspecified; M54.9 Dorsalgia, unspecified; Z88.6 Allergy status to analgesic agent; Z88.8 Allergy status to other drugs, medicaments and biological substances; Z88.1 Allergy status to other antibiotic agents; Z88.5 Allergy status to narcotic agent; Z88.0 Allergy status to penicillin; Z91.018 Allergy to other foods; Z91.048 Other nonmedicinal substance allergy status; Z79.899 Other long term (current) drug therapy
CPT/HCPCS: 93005

== ENCOUNTER → 2018-05-29 | Outpatient (REF) | payer OTHER ==
[2018-06-01 00:06] LABS: F048-IGE ONIONS <0.10 kU/L (Class 0)
== END ==
LOC: M LAB REF 11:31
DX: Z91.018 Allergy to other foods (principal)

== ENCOUNTER 2018-06-28 23:00 | Emergency (ER) | payer OTHER ==
[2018-06-29] MEDS: ACETAMINOPHEN 325 MG TAB PO
[2018-06-29] MEDS ORDERED: KETOROLAC 60 MG/2 ML VIAL (J1885) IM
== END 2018-06-29 00:14 | disposition home or self-care (01) ==
LOC: M ED 06-29 00:14
DX: S46.911A Strain of unspecified muscle, fascia and tendon at shoulder and upper arm level, right arm, initial encounter (principal); X50.0XXA Overexertion from strenuous movement or load, initial encounter; Y92.89 Other specified places as the place of occurrence of the external cause; E11.9 Type 2 diabetes mellitus without complications; I10 Essential (primary) hypertension; E03.9 Hypothyroidism, unspecified; G89.29 Other chronic pain; Z79.899 Other long term (current) drug therapy; Z88.0 Allergy status to penicillin; Z88.1 Allergy status to other antibiotic agents; Z88.5 Allergy status to narcotic agent; Z88.8 Allergy status to other drugs, medicaments and biological substances; Z91.018 Allergy to other foods; Z91.048 Other nonmedicinal substance allergy status
CPT/HCPCS: 73030

== ENCOUNTER → 2018-07-20 | Outpatient (CLI) | payer OTHER | LOC: M WUC 13:58 | DX: S62.201A Unspecified fracture of first metacarpal bone, right hand, initial encounter for closed fracture (principal) | CPT/HCPCS: 73100 ==